=== PATIENT | male | born 1995 | race Asian ===

== ENCOUNTER 2023-06-12 16:44 | Emergency (ER) | payer MEDICAID ==
[~2023-06-12] VITALS: Ht 175.3 cm; Wt 85.0 kg
[2023-06-12 16:55] VITALS: BP 132/69; PULSE 96; RESP 18; TEMP 98.5; O2SAT 98
== END 2023-06-12 21:52 | disposition home or self-care (01) ==
LOC: ER 16:44
DX: S01.111D Laceration without foreign body of right eyelid and periocular area, subsequent encounter (principal); F19.90 Other psychoactive substance use, unspecified, uncomplicated; X58.XXXD Exposure to other specified factors, subsequent encounter
CPT/HCPCS: 99281